=== PATIENT | female | born 1950 | race Caucasian/White ===

== ENCOUNTER → 2017-08-16 | Outpatient (CLI) | payer OTHER ==
[~2017-08-16] MED LIST: AMLO2.5T PO; ASCO10004 PO; ASPI-496 PO; CHOL10003 PO; ERYT250C8 PO; ESTR0.5T PO; MEDR2.5T30 PO; NITR0.4T SL; ZOLP10TA5 PO; [UNRECOGNIZED DRUG - OTHER] TD
== END ==
LOC: CFH 13:01
PROVIDERS: ATTEND Surgery
DX: M81.0 Age-related osteoporosis without current pathological fracture (principal); E21.0 Primary hyperparathyroidism
CPT/HCPCS: 77080